=== PATIENT | male | born 1940 | race Caucasian/White ===

== ENCOUNTER → 2021-06-01 | Outpatient (CLI) | payer MEDICARE, BC ==
--- NOTE | 2021-06-04 10:31 | MR ---
EXAMINATION TYPE: MR Prostate wo/w con DATE OF EXAM: 06/01/2021 COMPARISON: None. INDICATION: Prostate cancer, prior biopsy and psa. PSA: 7.83 ng/ml on March 23, 2021 Recent Biopsy and Date: May 19, 2020 Pathology Report (If Applicable): Left lateral apex adenocarcinoma Unique grade 3+3 = 6 less than 1 mm of 6 mm tissue approximately 5-10% volume involvement. Left apex or atypical glands TECHNIQUE: Examination was performed using a 3T MRI without an endorectal coil. Multiparametric imaging was perf ormed with T2 mutliplanar sequences, axial diffusion weighted imaging and dynamic contrast enhanced i maging, utilizing 9 mL intravenous Gadavist gadolinium contrast. FINDINGS: There is no clinically significant cancer identified. PROSTATE VOLUME: 6.4 cm SI x 5.3 cm AP x 6.3 cm LR Vol= 111.89 cc Predicted PSA level equals 13.43 PSA DENSITY: 0.07 ng/ml/cc Slightly unusual angulation of the prostate gland relative to remainder of pelvic structures with mor e prominent left-sided transitional zone. No areas of diminished signal on ADC mapping. Marked hetero geneity and enlargement of the transitional zone with single curved linear area of T2 hypointensity i n the base centrally measuring 11 x 4 mm axial image 23. No areas of restricted diffusion are evident . Prostate capsule is maintained. Seminal vesicles appear within normal limits. No suspicious wall thickening or trabeculation in the bladder. Few diverticula in the sigmoid colon. Visualized osseous structures are intact. No pelvic fluid colle ction or adenopathy. IMPRESSION: Enlarged prostate consistent BPH A focus of clinically significant cancer is not clearly identified. Highest Assessment Category: 3 MRI Stage: T1c N0 M0 based on review of pelvic images. False negative rates for MRI range from 5-20% depending on risk profile. Assessment Categories: 1 ? Very low (clinically significant cancer is highly unlikely to be present) 2 ? Low (clinically significant cancer is unlikely to be present) 3 ? Intermediate (the presence of clinically significant cancer is equivocal) 4 ? High (clinically significant cancer is likely to be present) 5 ? Very high (clinically significant cancer is highly likely to be present)
== END | disposition home or self-care (01) ==
LOC: RADMRIMAIN 08:57
PROVIDERS: ATTEND Urology
DX: C61 Malignant neoplasm of prostate (principal)
CPT/HCPCS: 72197; A9585

== ENCOUNTER → 2022-08-09 | Outpatient (CLI) | payer MEDICARE, BC ==
--- NOTE | 2022-08-09 12:57 | MR ---
EXAMINATION TYPE: MR Prostate wo/w con DATE OF EXAM: 08/09/2022 10:42 AM COMPARISON: 06/01/2021. CLINICAL INDICATION:Male, 81 years old with history of C61 MALIGNANT NEOPLASM OF PROSTATE; TECHNIQUE: Multi-planar, multi-sequence imaging of the pelvis is performed prior to and following the uncomplicated administration of bolus intravenous gadolinium. CONTRAST: 8 Gadavist Interpretive Criteria: PI-RADS v2.1 SERUM PSA: 6.31 on 06/22/2022 6.59 on 12/22/2021 8.13 on 09/26/2020 7.83 on 03/23/2021 SURGICAL PATHOLOGY: Positive biopsy 05/19/2020 involving the left lateral apex. 3+3 total 6 Unique score. FINDINGS: Prostatic dimensions: 6.6 x 6.1 x 5.8 cm. Ellipsoid Volume: 122.26 (PSA density=0.05 ng/mL/mL) CENTRAL GLAND (Central and Transition Zones/CZ+TZ): 6 mm area of restricted diffusion within the right central gland hypertrophic BPH nodule near the bas e as well as a small 4 mm focus of restricted diffusion more inferiorly in the mid gland BPH nodule. (PI-RADS 4) Left central gland BPH nodule with subtle higher DWI and low or ADC signal measuring 10 x 13 mm. (PI- RADS 3) PERIPHERAL ZONE (PZ): Thinning of the peripheral zone secondary to central zone hypertrophy and nodular change. Extruded ri ght BPH nodule effaces the right peripheral zone. No evidence of masslike abnormality, or localized p erfusional hypervascularity, to further suggest a focus of clinically significant prostate cancer. (P I-RADS 2) SEMINAL VESICLES (SV): Symmetric and unremarkable. PERIPROSTATIC TISSUES: Unremarkable. LYMPH NODES: Multiple lymph nodes are present including bilateral inguinal lymph nodes measuring up to 10 mm on th e right and 10 mm on the left. Left external iliac lymph node appearing 11 mm in short axis and along the left iliac chain more superiorly measuring up to 11 mm in short axis. Right common iliac and external iliac artery lymph nodes measuring up to 11 mm in short axis. Right external iliac lymph node measuring up to 12 mm in short axis. REMAINING PELVIS: Bladder wall is within normal limits given distention. No abnormal free or organized intrapelvic fluid collection. No pathologic bowel dilation or mural thickening. Scattered colonic diverticula are present throughout the sigmoid colon. Left fat-containing inguinal hernia. OSSEOUS STRUCTURES: No suspicious osseous abnormality. IMPRESSION: 1. There are at least 2 lesions within the right central gland measuring 6 and 4 mm (PI-RADS 4) 2. Left central gland BPH nodule with subtle DWI/ADC signal abnormality measuring 13 x 10 mm PI-RADS 3) 3. Substantial BPH, estimated gland volume 122.26 mL. 4. Prominent lymphadenopathy including the bilateral inguinal, external iliac and common iliac lymph node chains. These are relatively similar to prior MRI 06/01/2021. If there is concern for metastatic disease a pet/CT gallium-68 PSMA scan may be performed.
== END | disposition home or self-care (01) ==
LOC: RADMRIMAIN 09:23
PROVIDERS: ATTEND Urology
DX: C61 Malignant neoplasm of prostate (principal); E04.1 Nontoxic single thyroid nodule; N40.0 Benign prostatic hyperplasia without lower urinary tract symptoms
CPT/HCPCS: 72197; A9585

== ENCOUNTER → 2024-01-15 | Outpatient (CLI) | payer MEDICARE, BC ==
--- NOTE | 2024-01-15 13:41 | MR ---
EXAMINATION TYPE: MR Prostate wo/w con DATE OF EXAM: 01/15/2024 8:09 AM COMPARISON: 08/09/2022. CLINICAL INDICATION: Male, 83 years old with history of C61 MALIGNANT NEOPLASM OF PROSTATE; Prostate cancer TECHNIQUE: Multi-planar, multi-sequence imaging of the pelvis is performed prior to and following the uncomplicated administration of bolus intravenous gadolinium. IV Contrast: 9 mL Gadavist Interpretive Criteria: PI-RADS v2.1 SERUM PSA: 6.59 on 12-22-21, 6.31 06-22-22 SURGICAL PATHOLOGY: Positive biopsy 05/19/2020 involving the left lateral apex. 3+3 total 6 Unique score. FINDINGS: Prostatic dimensions: 6.4 x 6.3 x 6.1 cm. Ellipsoid Volume:128.78 (PSA density=0.05 ng/mL/mL) CENTRAL GLAND (Central and Transition Zones/CZ+TZ): Previous 6 mm lesion now measuring 4 mm near the base with high DWI low ADC signal. This is near poss ibly within BPH nodules. (PI-RADS 4) Other area seen on prior anterior aspect is not definitively visualized. PERIPHERAL ZONE (PZ): Bilateral linear, indistinct wedgelike areas of low ADC, and low T2 signal, No evidence of masslike a bnormality, or localized perfusional hypervascularity, to further suggest a focus of clinically signi ficant prostate cancer. (PI-RADS 2) SEMINAL VESICLES (SV): Symmetric and unremarkable. PERIPROSTATIC TISSUES: Unremarkable. LYMPH NODES: Prominentr lymph nodes seen throughout the pelvis including left inguinal region measuring 10 mm in s hort axis, right inguinal region measuring 11 mm in short axis. Left external iliac lymph node measur ing up to 10 mm in short axis, right external iliac lymph node measuring up to 10 mm in short axis. REMAINING PELVIS: Bladder wall is within normal limits given distention. No abnormal free or organized intrapelvic fluid collection. No pathologic bowel dilation or mural thickening. Colonic diverticula are present. No hernia visualized OSSEOUS STRUCTURES: No suspicious osseous abnormality. IMPRESSION: 1. Decrease in size of PI-RADS 4 lesion in the right central gland base, no new areas definitively vi sualized. Maximum PI-RADS score: 4 2. Substantial BPH, estimated gland volume 128.78 mL. 3. Similar lymphadenopathy as seen on prior imaging. [facility], , 01/15/2024 1:38 PM
== END | disposition home or self-care (01) ==
LOC: RADMRIMAIN 07:02
PROVIDERS: ATTEND Urology
DX: C61 Malignant neoplasm of prostate (principal); N40.0 Benign prostatic hyperplasia without lower urinary tract symptoms; R59.1 Generalized enlarged lymph nodes
CPT/HCPCS: 72197; A9585